=== PATIENT | female | born 1990 | race Caucasian/White ===

== ENCOUNTER 2016-06-19 21:18 | Emergency (ER) | payer OTHER ==
[~2016-06-19] VITALS: Ht 152.4 cm; Wt 80.0 kg
[~2016-06-19 21:18] MED LIST: FER325 PO; HYDR-3498 PO; NITR-58 PO; ONDA4TAB35 BU; ONDA4TAB35 PO; ONDA4TAB8 PO; PHEN-538 PO; PREN1TAB17 BU
[2016-06-19 21:41] VITALS: Ht 152.4 cm; Wt 80.0 kg
[2016-06-20] MEDS ORDERED: SOD CHLORIDE 0.9% 1,000 ML IV STA (00:07)
[2016-06-20 00:39] LABS: BASOPHIL # 0.1 10^3/ul (0.0-0.1); BASOPHILS % 0.7 % (0.0-2.0); EOSINOPHILS # 0.1 10^3/ul (0.0-0.5); EOSINOPHILS % 0.6 % (0.0-7.0); HEMATOCRIT 41.7 % (37.0-47.0); HEMOGLOBIN 14.5 g/dl (12.0-16.0); LYMPHOCYTES # 2.9 10^3/ul (0.8-2.9); LYMPHOCYTES % 33.8 % (15.0-51.0); MEAN CORPUSCULAR HEMOGLOBIN 31.9 pg (29.0-33.0); MEAN CORPUSCULAR HGB CONC 34.8 g/dl (32.0-37.0); MEAN CORPUSCULAR VOLUME 91.6 fl (82.0-101.0); MEAN PLATELET VOLUME 9.6 fl (7.4-10.4); MONOCYTE # 0.5 10^3/ul (0.3-0.9); MONOCYTES % 6.3 % (0.0-11.0); NEUTROPHIL # 5.1 10^3/ul (1.6-7.5); NEUTROPHILS % 58.6 % (39.0-77.0); PLATELET COUNT 267 10^3/UL (140-440); RED BLOOD COUNT 4.55 10^6/ul (4.20-5.40); RED CELL DISTRIBUTION WIDTH 12.4 % (11.5-14.5); UNCORRECTED WBC 8.7 10^3/ul (4.8-10.8); WHITE BLOOD COUNT 8.7 10^3/ul (4.8-10.8)
[2016-06-20 00:50] LABS: ADD UMIC YES; URINE BILIRUBIN (Dip) NEGATIVE (NEGATIVE); URINE BLOOD (Dip) NEGATIVE (NEGATIVE); URINE COLOR LT. YELLOW (YELLOW); URINE GLUCOSE (Dip) NEGATIVE (NEGATIVE); URINE KETONES (Dip) NEGATIVE (NEGATIVE); URINE LEUKOCYTE ESTERASE (Dip) NEGATIVE (NEGATIVE); URINE NITRITE (Dip) POSITIVE (NEGATIVE); URINE UROBILINOGEN (Dip) 1.0 E.U./dL (0.1-1.0)
[2016-06-20 00:51] LABS: ALBUMIN 4.2 g/dl (3.3-4.9)
[2016-06-20] MEDS ORDERED: morphine 4 MG/ML VIAL IV STA (00:51)
[2016-06-20 00:52] LABS: POTASSIUM 3.9 mmol/L (3.5-5.1)
[2016-06-20 00:53] LABS: CONDITION 1
[2016-06-20 00:54] LABS: ALBUMIN/GLOBULIN RATIO 1.61; BILIRUBIN,INDIRECT 0.2 mg/dl (0-1.1); BILIRUBIN,TOTAL 0.2 mg/dl (0.2-1.3); CREATININE 0.73 mg/dl (0.44-1.00); TOTAL PROTEIN 6.8 g/dl (6.1-8.1)
[2016-06-20 00:55] LABS: URINE TOTAL PROTEIN (Dip) NEGATIVE (NEGATIVE)
--- NOTE | 2016-06-20 01:22 | RADRPT ---
PROCEDURE: ULTRASOUND LIMITED ABDOMEN CLINICAL INDICATION: 26-year-old female with abdominal pain. TECHNIQUE: Multiple sonographic of the right upper quadrant of the abdomen were obtained. The imag es were reviewed on a PACS workstation. COMPARISON: Ultrasound right upper quadrant December 14, 2015. FINDINGS: The pancreas is not well visualized secondary to overlying bowel gas. The liver displays normal echogenicity. The liver measures 13.6 cm in length. No evidence of intrah epatic biliary ductal dilatation is seen. The portal and hepatic veins are unremarkable. The gallbladder contains multiple shadowing stones. Gallbladder wall thickness is within normal shanks its measuring 1.6 mm. No pericholecystic fluid is seen. The common bile duct measures 3.5 mm and is not dilated. The right kidney displays normal echogenicity. The right kidney measures 10.1 cm in maximal length. No caliectasis or hydronephrosis is seen. No free fluid is seen. IMPRESSION: Cholelithiasis. .Tanvir Wilkerson MD, MD Date Time Electronically viewed and signed by .Tanvir Wilkerson MD, on 06/20/2016 01:22 .Nirmal/
--- NOTE | 2016-06-20 01:30 | ERD ---
ER Documentation Chief Complaint Date/Time DATE: 06/20/16 TIME: 01:27 Chief Complaint RUQ abd pain x 1 week HPI This is a 26-year-old female presents to the emergency room for evaluation of abdominal pain. The patient does have a history of gallstones, and states that her pain feels similar to previous gallstone pain. She localizes it to the right upper quadrant and describes as a sharp pain with mild radiation to her back. The patient has not contacted the general surgeon for evaluation of her gallstones and came to the ER tonight for evaluation. ROS All systems reviewed and are negative except as per history of present illness. Medications Home Meds Active Scripts Phenazopyridine Hcl* (Pyridium*) 200 Mg Tab, 200 MG PO TID Y for URINARY PAIN, # 6 TAB Prov:KHUSHBOO EDWARDS NP 12/14/15 Ondansetron Hcl* (Zofran* ODT) 4 mg -ODT Tab.disper, 4 MG PO Q8 Y for NAUSEA AND /OR VOMITING, #30 TAB Prov:KHUSHBOO EDWARDS NP 12/14/15 Hydrocodone Bit-Acetaminophen* (Lucinda*) 5-325 Mg Tab, 1 TAB PO Q6 Y for PAIN, # 20 TAB Prov:KHUSHBOO EDWARDS NP 12/14/15 Nitrofurantoin Monohyd Macrocr* (Macrobid*) 100 Mg Capsr, 100 MG PO BID for 7 Days, CAP Prov:HAYDEN MORENO 12/14/15 Nitrofurantoin Monohyd Macrocr* (Macrobid*) 100 Mg Capsr, 100 MG PO BID for 7 Days, CAP Prov:PARESH LINCOLN 04/04/15 Ondansetron Hcl* (Zofran* ODT) 4 mg -ODT Tab.disper, 4 MG PO Q8 Y for NAUSEA AND /OR VOMITING, #30 TAB Prov:KHUSHBOO EDWARDS NP 02/08/15 Hydrocodone Bit-Acetaminophen* (Lucinda*) 5-325 Mg Tab, 1 TAB PO Q6 Y for PAIN, # 20 TAB Prov:KHUSHBOO EDWARDS NP 02/08/15 Nitrofurantoin Monohyd Macrocr* (Macrobid*) 100 Mg Capsr, 100 MG PO BID for 7 Days, CAP Prov:KHUSHBOO EDWARDS BOSTONDora Luna [employer] 02/08/15 Reported Medications Ondansetron Hcl* (Zofran* ODT) 4 mg -ODT Tab.disper, 4 MG BU Q4H for NAUSEA AND OR VOMITING for 1 Day, TAB 09/08/14 Vit-Iron Fumarate-FA ( Tablet) 1 Each Tablet, 1 TAB BU AM, TAB 09/08/14 Ferrous Sulfate* (Ferrous Sulfate*) 325 Mg Tabec, 325 MG PO DAILY, TAB 08/29/14 Ondansetron Hcl* (Zofran*) 4 Mg Tablet, 4 MG PO Q8, TAB 08/29/14 Allergies Allergies: Coded Allergies: No Known Drug Allergies (Verified Allergy, Unknown, 04/04/15) PMhx/Soc History of Surgery: No Anesthesia Reaction: No Hx Neurological Disorder: No Hx Respiratory Disorders: No Hx Cardiac Disorders: No Hx Psychiatric Problems: No Hx Miscellaneous Medical Probl: Yes (Gallstones) Hx Alcohol Use: No Hx Substance Use: No Hx Tobacco Use: No Smoking Status: Never smoker Physical Exam Vitals Vital Signs Date Time Temp Pulse Resp B/P Pulse Ox O2 Delivery O2 Flow Rate FiO2 06/19/16 21:41 98.3 62 20 108/59 100 Physical Exam INITIAL VITAL SIGNS: Reviewed by me GENERAL: The patient is well developed and appropriate for usual state of health in no apparent distress HEENT: Pupils equal, round, and reactive to light. EOMI. There is no scleral icterus. NECK: C-spine is soft and supple, there is no meningismus. There is no cervical lymphadenopathy. LUNGS: Clear to auscultation bilaterally. There are no rales, wheezes or rhonchi. HEART: Regular rate and rhythm, no murmurs, clicks, rubs or gallops. ABDOMEN: Positive Kaplan sign. There are bowel sounds in all four quadrants. No rebound or guarding. EXTREMITIES: There is no peripheral cyanosis or edema. No focal swelling or erythema. NEUROLOGICAL: The patient moves all four extremities with 5/5 strength. Cranial nerves II - XII are intact. Normal gait. Alert and oriented SKIN: There is no apparent rash or petechiae. HEME/LYMPHATIC: There is no evidence of excessive bruising or lymphedema. PSYCHIATRIC: The patient does not appear anxious or depressed. Result Diagram: 06/20/16 0017 06/20/16 0017 Results 24 hrs Laboratory Tests Test 06/20/16 00:17 Alanine Aminotransferase (ALT/SGPT) 25IU/L Albumin 4.2g/dl Albumin/Globulin Ratio 1.61 Alkaline Phosphatase 90IU/L Anion Gap 19 Aspartate Amino Transf (AST/SGOT) 17IU/L Basophils # 0.110^3/ul Basophils % 0.7% Blood Urea Nitrogen 13mg/dl Calcium Level 9.0mg/dl Carbon Dioxide Level 23mmol/L Chloride Level 104mmol/L Creatinine 0.73mg/dl Direct Bilirubin 0.00mg/dl Eosinophils # 0.110^3/ul Eosinophils % 0.6% Globulin 2.60g/dl Glucose Level 87mg/dl Hematocrit 41.7% Hemoglobin 14.5g/dl Indirect Bilirubin 0.2mg/dl Lipase 56U/L Lymphocytes # 2.910^3/ul Lymphocytes % 33.8% Mean Corpuscular Hemoglobin 31.9pg Mean Corpuscular Hemoglobin Concent 34.8g/dl Mean Corpuscular Volume 91.6fl Mean Platelet Volume 9.6fl Monocytes # 0.510^3/ul Monocytes % 6.3% Neutrophils # 5.110^3/ul Neutrophils % 58.6% Nucleated Red Blood Cells # 0.010^3/ul Nucleated Red Blood Cells % 0.0/100WBC Platelet Count 69708^3/UL Potassium Level 3.9mmol/L Red Blood Count 4.5510^6/ul Red Cell Distribution Width 12.4% Sodium Level 142mmol/L Total Bilirubin 0.2mg/dl Total Protein 6.8g/dl Urine Bilirubin NEGATIVE Urine Clarity CLEAR Urine Color LT. YELLOW Urine Glucose NEGATIVE% Urine Hemoglobin NEGATIVE Urine Ketones NEGATIVE Urine Leukocyte Esterase NEGATIVE Urine Microscopic RBC Pending Urine Microscopic WBC Pending Urine Nitrite POSITIVE Urine Specific [place] 1.020 Urine Total Protein NEGATIVE Urine Urobilinogen 1.0 E.U./dL Urine pH 7.0 White Blood Count 8.710^3/ul Current Medications Medications (Trade) Dose Ordered Sig/Ann Marie Route PRN Reason Start Time Stop Time Status Last Admin Dose Admin Sodium Chloride (NS) 1,000 ml @ 1,000 mls/hr Q1H STAT IV 06/20/16 00:07 06/20/16 01:06 DC 06/20/16 00:30 Morphine Sulfate (morphine) 4 mg ONCE STAT IV 06/20/16 00:51 06/20/16 00:52 DC 06/20/16 01:01 Procedures/MDM Ultrasound gallbladder: Cholelithiasis This is a 26-year-old female with a history of gallstones who presents to the emergency room for evaluation of abdominal pain. She did have a positive Kaplan sign. I did obtain blood work and an ultrasound which does not show any leukocytosis. The ultrasound does show cholelithiasis. The patient was given morphine in the emergency room with a moderate relief of her pain. I advised patient she needs to follow-up with a general surgeon as an outpatient and will give referral for general surgery. She will also be discharged home with Tylenol with codeine. Departure Diagnosis: Primary Impression: Biliary colic Additional Impression: Cholelithiasis Condition: Stable MALENA ESTRADA DO Jun 20, 2016 01:29
[2016-06-20] MEDS ORDERED: ACET1TAB40 PO (01:31)
[2016-06-20 01:41] LABS: BACTERIA,URINE MANY; SQUAMOUS EPITHELIAL CELL,UR MANY; URINE RBCS 0-2 /HPF (0)
[2016-06-20 01:45] VITALS: BP 110/71; PULSE 61; RESP 16; TEMP 98.4
== END 2016-06-20 01:52 | disposition home or self-care (01) ==
LOC: E/R 21:18
DX: K80.70 Calculus of gallbladder and bile duct without cholecystitis without obstruction (principal)
CPT/HCPCS: 36415; 76705; 80053; 81001; 81003; 83690; 85025; 96374; J2270; J7030; Z7502

== ENCOUNTER 2017-01-07 14:22 | Emergency (ER) | payer OTHER ==
[~2017-01-07] VITALS: Wt 78.0 kg
[~2017-01-07 14:22] MED LIST changes: +ACET1TAB40 PO
[2017-01-07 15:44] LABS: BASOPHIL # 0.1 10^3/ul (0.0-0.1); BASOPHILS % 0.7 % (0.0-2.0); EOSINOPHILS # 0.1 10^3/ul (0.0-0.5); EOSINOPHILS % 1.1 % (0.0-7.0); HEMATOCRIT 42.4 % (37.0-47.0); HEMOGLOBIN 14.7 g/dl (12.0-16.0); LYMPHOCYTES # 1.8 10^3/ul (0.8-2.9); LYMPHOCYTES % 22.4 % (15.0-51.0); MEAN CORPUSCULAR HEMOGLOBIN 31.5 pg (29.0-33.0); MEAN CORPUSCULAR HGB CONC 34.7 g/dl (32.0-37.0); MEAN CORPUSCULAR VOLUME 90.8 fl (82.0-101.0); MEAN PLATELET VOLUME 10.9 fl (7.4-10.4); MONOCYTE # 0.5 10^3/ul (0.3-0.9); MONOCYTES % 6.4 % (0.0-11.0); NEUTROPHILS % 69.2 % (39.0-77.0); PLATELET COUNT 269 10^3/UL (140-415); RED BLOOD COUNT 4.67 10^6/ul (4.20-5.40); RED CELL DISTRIBUTION WIDTH 12.8 % (11.5-14.5); WHITE BLOOD COUNT 8.2 10^3/ul (4.8-10.8)
[2017-01-07 16:00] LABS: ALBUMIN 4.4 g/dl (3.3-4.9); ALBUMIN/GLOBULIN RATIO 1.62; BILIRUBIN,INDIRECT 0.4 mg/dl (0-1.1); BILIRUBIN,TOTAL 0.4 mg/dl (0.2-1.3); CALCIUM 9.1 mg/dl (8.4-10.2); CREATININE 0.92 mg/dl (0.44-1.00); TOTAL PROTEIN 7.1 g/dl (6.1-8.1)
--- NOTE | 2017-01-07 16:04 | RADRPT ---
PROCEDURE: US Abdomen. CLINICAL INDICATION: abdominal pain TECHNIQUE: Multiple real-time images were acquired of the patient's right upper quadrant abdomen a nd retroperitoneum utilizing a high resolution transducer. COMPARISON: 06/20/16 FINDINGS: The liver demonstrates normal echogenicity. The liver is normal in size and no focal solid lesions are seen. The liver measures 13.4 cm in length. The portal vein is patent with normal direction of f low. No intrahepatic biliary dilatation is seen. Multiple small calcified gallstones are identified within the gallbladder. There is no pericholecys tic fluid or gallbladder wall thickening. The common bile duct measures 3 mm in maximal dimension. The visualized portions of the pancreas are unremarkable. The tail of the pancreas is not seen. No free fluid is identified. The right kidney is normal in size, and demonstrate normal echogenicity and cortical thickness. The right kidney measures 10.2 cm in long dimension. There is no evidence of hydronephrosis. There are no kidney stones. RPTAT: AA IMPRESSION: Cholelithiasis. .Mark Gresham MD, Date Time Electronically viewed and signed by .Mark Gresham MD, MD on 01/07/2017 16:03 .S/
--- NOTE | 2017-01-07 18:03 | ERD ---
ER Documentation Chief Complaint Date/Time DATE: 01/07/17 TIME: 17:55 Chief Complaint bruises to christina le x4 days and "gallstone pain" HPI This is a 26-year-old female presenting to emergency department for bruising to bilateral lower extremities and pain to epigastric and right upper quadrant abdominal area. Patient states she has history of gallstones and wants to see a surgeon for gallbladder removal. No fevers or chills. No nausea, vomiting or diarrhea. Pain is intermittent and mild to moderate. No alleviating or aggravating factors. No recent travel. No sick contacts. ROS All systems reviewed and are negative except as per history of present illness. Medications Home Meds Active Scripts Acetaminophen with Codeine (Acetaminophen-Cod #3 Tablet) 1 Each Tablet, 1 TAB PO Q6H Y for PAIN, #20 TAB Prov:MALENA ESTRADA DO 06/20/16 Phenazopyridine Hcl* (Pyridium*) 200 Mg Tab, 200 MG PO TID Y for URINARY PAIN, # 6 TAB Prov:KHUSHBOO EDWARDS NP 12/14/15 Ondansetron Hcl* (Zofran* ODT) 4 mg -ODT Tab.disper, 4 MG PO Q8 Y for NAUSEA AND /OR VOMITING, #30 TAB Prov:KHUSHBOO EDWARDS NP 12/14/15 Hydrocodone Bit-Acetaminophen* (Laotto*) 5-325 Mg Tab, 1 TAB PO Q6 Y for PAIN, # 20 TAB Prov:KHUSHBOO EDWARDS NP 12/14/15 Nitrofurantoin Monohyd Macrocr* (Macrobid*) 100 Mg Capsr, 100 MG PO BID for 7 Days, CAP Prov:HAYDEN MORENO 12/14/15 Nitrofurantoin Monohyd Macrocr* (Macrobid*) 100 Mg Capsr, 100 MG PO BID for 7 Days, CAP Prov:PARESH LINCOLN 04/04/15 Ondansetron Hcl* (Zofran* ODT) 4 mg -ODT Tab.disper, 4 MG PO Q8 Y for NAUSEA AND /OR VOMITING, #30 TAB Prov:KHUSHBOO EDWARDS NP 02/08/15 Hydrocodone Bit-Acetaminophen* (Laotto*) 5-325 Mg Tab, 1 TAB PO Q6 Y for PAIN, # 20 TAB Prov:KHUSHBOO EDWARDS LUDY RosaLisbeth [employer] 02/08/15 Nitrofurantoin Monohyd Macrocr* (Macrobid*) 100 Mg Capsr, 100 MG PO BID for 7 Days, CAP Prov:KHUSHBOO EDWARDS BOSTON TLisbeth [employer] 02/08/15 Reported Medications Ondansetron Hcl* (Zofran* ODT) 4 mg -ODT Tab.disper, 4 MG BU Q4H for NAUSEA AND OR VOMITING for 1 Day, TAB 09/08/14 Vit-Iron Fumarate-FA ( Tablet) 1 Each Tablet, 1 TAB BU AM, TAB 09/08/14 Ferrous Sulfate* (Ferrous Sulfate*) 325 Mg Tabec, 325 MG PO DAILY, TAB 08/29/14 Ondansetron Hcl* (Zofran*) 4 Mg Tablet, 4 MG PO Q8, TAB 08/29/14 Allergies Allergies: Coded Allergies: No Known Drug Allergies (Verified Allergy, Unknown, 04/04/15) PMhx/Soc History of Surgery: No Anesthesia Reaction: No Hx Neurological Disorder: No Hx Respiratory Disorders: No Hx Cardiac Disorders: No Hx Psychiatric Problems: No Hx Miscellaneous Medical Probl: Yes (Gallstones) Hx Alcohol Use: No Hx Substance Use: No Hx Tobacco Use: No Smoking Status: Never smoker Physical Exam Vitals Vital Signs Date Time Temp Pulse Resp B/P Pulse Ox O2 Delivery O2 Flow Rate FiO2 01/07/17 14:24 99.2 97 20 107/56 97 Physical Exam Const: NAD, alert, no acute distress Head: Atraumatic Eyes: Normal Conjunctiva ENT: Normal External Ears, Nose and Mouth. Neck: Full range of motion..~ No meningismus. Resp: Clear to auscultation bilaterally. No wheezing, rhonchi or crackles. Cardio: Regular rate and rhythm, no murmurs Abd: Soft, non tender, non distended. Normal bowel sounds. negative Kaplan sign. negative rebound tenderness Skin: No petechiae or rashes Back: No midline or flank tenderness Ext: No cyanosis, or edema Neur: Awake and alert Psych: Normal Mood and Affect Result Diagram: 01/07/17 1527 01/07/17 1527 Results 24 hrs Laboratory Tests Test 01/07/17 15:27 White Blood Count 8.210^3/ul Red Blood Count 4.6710^6/ul Hemoglobin 14.7g/dl Hematocrit 42.4% Mean Corpuscular Volume 90.8fl Mean Corpuscular Hemoglobin 31.5pg Mean Corpuscular Hemoglobin Concent 34.7g/dl Red Cell Distribution Width 12.8% Platelet Count 34704^3/UL Mean Platelet Volume 10.9fl Neutrophils % 69.2% Lymphocytes % 22.4% Monocytes % 6.4% Eosinophils % 1.1% Basophils % 0.7% Nucleated Red Blood Cells % 0.0/100WBC Neutrophils # (Manual) 5.610^3/ul Lymphocytes # 1.810^3/ul Monocytes # 0.510^3/ul Eosinophils # 0.110^3/ul Basophils # 0.110^3/ul Nucleated Red Blood Cells # 0.010^3/ul Sodium Level 145mmol/L Potassium Level 4.0mmol/L Chloride Level 105mmol/L Carbon Dioxide Level 25mmol/L Anion Gap 19 Blood Urea Nitrogen 9mg/dl Creatinine 0.92mg/dl Glucose Level 88mg/dl Calcium Level 9.1mg/dl Total Bilirubin 0.4mg/dl Direct Bilirubin 0.00mg/dl Indirect Bilirubin 0.4mg/dl Aspartate Amino Transf (AST/SGOT) 16IU/L Alanine Aminotransferase (ALT/SGPT) 30IU/L Alkaline Phosphatase 79IU/L Total Protein 7.1g/dl Albumin 4.4g/dl Globulin 2.70g/dl Albumin/Globulin Ratio 1.62 Lipase 39U/L Procedures/[place] [address] Radiology Main Line: [phone] DIAGNOSTIC IMAGING REPORT Patient: LUCHO JOHN : 1990 Age: 26 Sex: F MR #: [id number] DOS: 01/07/17 [facility] Ordering MD: SATINDER PEÑA NP Location: [facility] Room/Bed: PROCEDURE: US Abdomen. CLINICAL INDICATION: abdominal pain TECHNIQUE: Multiple real-time images were acquired of the patient's right upper quadrant abdomen and retroperitoneum utilizing a high resolution transducer. COMPARISON: 06/20/16 FINDINGS: The liver demonstrates normal echogenicity. The liver is normal in size and no focal solid lesions are seen. The liver measures 13.4 cm in length. The portal vein is patent with normal direction of flow. No intrahepatic biliary dilatation is seen. Multiple small calcified gallstones are identified within the gallbladder. There is no pericholecystic fluid or gallbladder wall thickening. The common bile duct measures 3 mm in maximal dimension. The visualized portions of the pancreas are unremarkable. The tail of the pancreas is not seen. No free fluid is identified. The right kidney is normal in size, and demonstrate normal echogenicity and cortical thickness. The right kidney measures 10.2 cm in long dimension. There is no evidence of hydronephrosis. There are no kidney stones. RPTAT: AA IMPRESSION: Cholelithiasis. MDM: 26 year old female presents to ER with bruising to bilateral lower extremities and intermittent abdominal pain to epigastric and right upper quadrant pain. Patient states abdominal pain is mild to moderate and occurs intermittently. No aggravating or alleviating factors. No nausea, vomiting or diarrhea. No active vomiting while in the ED. Physical exam is unremarkable.Patient is requesting referral to see a general surgeon. CBC shows no significant anemia or infection. CMP shows no significant electrolyte imbalance. Liver enzymes are normal. Lipase is 39. Bilirubin is normal. Ultrasound gallbladder reviewed by radiologist as cholelithiasis.Patient is alert and stable throughout ED visit. Remains afebrile. Vital signs are stable. Denies need for pain medication at this time. Low suspicion for acute surgical abdomen, obstruction, peritonitis, acute cholangitis, acute cholecystitis or pancreatitis. Patient is appropriate for outpatient management and can follow up with their PCP in 2-3 days. Patient instructed to return to ED sooner if pain worsens or is intolerable, high fever or new symptoms such as anorexia, not tolerating PO, severe diarrhea or chest pain. Patient verbalizes understanding. Departure Diagnosis: Primary Impression: Cholelithiasis Cholelithiasis location: gallbladder Cholecystitis presence: without cholecystitis Biliary obstruction: without biliary obstruction Qualified Code : K80.20 - Calculus of gallbladder without cholecystitis without obstruction Condition: Stable Patient Instructions: Gallstones Referrals: COMMUNITY CLINICS YOU HAVE RECEIVED A MEDICAL SCREENING EXAM AND THE RESULTS INDICATE THAT YOU DO NOT HAVE A CONDITION THAT REQUIRES URGENT TREATMENT IN THE EMERGENCY DEPARTMENT. FURTHER EVALUATION AND TREATMENT OF YOUR CONDITION CAN WAIT UNTIL YOU ARE SEEN IN YOUR DOCTORS OFFICE WITHIN THE NEXT 1-2 DAYS. IT IS YOUR RESPONSIBILITY TO MAKE AN APPOINTMENT FOR FOLOW-UP CARE. IF YOU HAVE A PRIMARY DOCTOR --you should call your primary doctor and schedule an appointment IF YOU DO NOT HAVE A PRIMARY DOCTOR YOU CAN CALL OUR PHYSICIAN REFERRAL HOTLINE AT IF YOU CAN NOT AFFORD TO SEE A PHYSICIAN YOU CAN CHOSE FROM THE FOLLOWING [facility] [address] [facility] [address] [facility] [address] [facility] [address] [facility] [address] [facility] [facility] [address] [facility]. [facility] YOU HAVE RECEIVED A MEDICAL SCREENING EXAM AND THE RESULTS INDICATE THAT YOU DO NOT HAVE A CONDITION THAT REQUIRES URGENT TREATMENT IN THE EMERGENCY DEPARTMENT. FURTHER EVALUATION AND TREATMENT OF YOUR CONDITION CAN WAIT UNTIL YOU ARE SEEN IN YOUR DOCTORS OFFICE WITHIN THE NEXT 1-2 DAYS. IT IS YOUR RESPONSIBILITY TO MAKE AN APPOINTMENT FOR FOLOW-UP CARE. IF YOU HAVE A PRIMARY DOCTOR --you should call your primary doctor and schedule and appointment IF YOU DO NOT HAVE A PRIMARY DOCTOR YOU CAN CALL OUR PHYSICIAN REFERRAL HOTLINE AT . IF YOU CAN NOT AFFORD TO SEE A PHYSICIAN YOU CAN CHOSE FROM THE FOLLOWING [facility]: [facility] [address] [place] [address] [facility] [address] [place] [address] [facility] [address] [place] [address] Additional Instructions: Call your primary care doctor TOMORROW for an appointment during the next 1 WEEK.Tell the medical secretary that you were referred from this facility.See the doctor sooner or return here if your condition worsens before your appointment time. Return to ED for any high fever, chest pain, difficulty breathing, shortness breath, wheezing, vomiting, diarrhea, abdominal pain or any new or worsening symptoms. SATINDER PEÑA NP Jan 07, 2017 18:02
== END 2017-01-07 16:30 | disposition home or self-care (01) ==
LOC: FTE 14:22
DX: K80.20 Calculus of gallbladder without cholecystitis without obstruction (principal)
CPT/HCPCS: 76705; 80053; 83690; 85025; Z7502